=== PATIENT | female | born 1965 | race Caucasian/White ===

== ENCOUNTER → 2018-01-31 | Outpatient (CLI) | payer BC | LOC: MC.RAD 14:00 | DX: N60.01 Solitary cyst of right breast (principal) ==

== ENCOUNTER → 2019-04-09 | Outpatient (CLI) | payer BC | LOC: MC.RAD 11:08 | DX: Z12.31 Encounter for screening mammogram for malignant neoplasm of breast (principal) ==

== ENCOUNTER → 2020-02-04 | Outpatient (CLI) | payer BC | LOC: COL.PUL 11:28 | DX: R06.02 Shortness of breath (principal) ==

== ENCOUNTER → 2020-02-12 | Outpatient (CLI) | payer BC | LOC: COL.PUL 11:35 | DX: R06.02 Shortness of breath (principal) ==

== ENCOUNTER → 2020-04-15 | Outpatient (CLI) | payer BC | LOC: MC.RAD 13:00 | DX: Z12.31 Encounter for screening mammogram for malignant neoplasm of breast (principal) ==

== ENCOUNTER 2021-04-07 09:59 | Outpatient (CLI) | payer BC ==
[~2021-04-07] VITALS: Ht 162.6 cm; Wt 74.0 kg
[2021-04-07 10:15] VITALS: BP 126/81; PULSE 97; TEMP 99.3
[2021-04-07 10:30] VITALS: BP 120/79; PULSE 96
[2021-04-07] MEDS ORDERED: TYLENOL 500MG500 MG PO (10:34)
[2021-04-07 10:45] VITALS: BP 112/76; PULSE 97
[2021-04-07 11:00] VITALS: BP 126/78; PULSE 94
[2021-04-07 11:15] VITALS: BP 108/79; PULSE 93
[2021-04-07 11:30] VITALS: BP 119/71; PULSE 90
[2021-04-07] MEDS ORDERED: LUTEIN20 M1 PO (13:04)
[2021-04-07] MEDS ORDERED: CALCIUM 600MG+D1 TAB PO (13:05)
[2021-04-07] MEDS ORDERED: ONE-A-DAY ESSE1 EACH PO (13:05)
[2021-04-07] MEDS ORDERED: EMERGEN-C IMM1000 MG PO (13:06)
[2021-04-07] MEDS ORDERED: NATURE'S BLE1000 MCG PO (13:06)
== END 2021-04-07 13:06 ==
LOC: EUO 09:59
DX: U07.1 COVID-19 (principal)
CPT/HCPCS: Q0244

== ENCOUNTER → 2021-07-20 | Outpatient (CLI) | payer BC ==
[~2021-07-20] MED LIST: CALCIUM 600MG+D1 TAB PO; EMERGEN-C IMM1000 MG PO; LUTEIN20 M1 PO; NATURE'S BLE1000 MCG PO; ONE-A-DAY ESSE1 EACH PO; TYLENOL 500MG500 MG PO
== END ==
LOC: MC.RAD 05-27 10:15
DX: Z12.31 Encounter for screening mammogram for malignant neoplasm of breast (principal)